=== PATIENT | female | born 1985 | race Caucasian/White ===

== ENCOUNTER → 2018-12-02 | Outpatient (CLI) | payer BC ==
[2017-11-02 18:36] VITALS: BMI 26.2
[~2018-12-02] MED LIST: Benzocaine 60 ML TP; DOCU240C67 PO; Docusate Calcium PO; FERR-41 PO; FERR1TAB PO; HYDR2TAB4 PO; IBUP800T37 PO; Ibuprofen PO; Lanolin TP; OXYC5TAB38 PO
== END ==
LOC: AUD 11:00
PROVIDERS: ATTEND Otolaryngology
DX: H69.82 Other specified disorders of Eustachian tube, left ear (principal)
CPT/HCPCS: 92557; 92570